=== PATIENT | male | born 1965 | race Caucasian/White ===

== ENCOUNTER 2016-11-20 21:08 | Emergency (ER) | payer SELFPAY ==
[~2016-11-20] VITALS: Ht 185.4 cm; Wt 84.1 kg
[2016-11-20 21:39] LABS: HEMATOCRIT 45.7 % (38.0-50.0); MCH 30.4 PG (29.0-34.0); MCHC 33.9 G/DL (30.0-36.0); MCV 89.6 FL (86-99); MEAN PLAT.VOLUME 9.4 uM^3 (9.0-12.4); PLATELET COUNT 301 K/uL (156-360); RBC DIS.WIDTH-CV 13.2 % (11.8-14.6); RBC DIS.WIDTH-SD 43.4 % (39-53); WHITE BLOOD COUNT 10.9 K/uL (4.1-10.2)
[2016-11-20 21:57] LABS: CHLORIDE 106 mEq/L (99-109); POTASSIUM 3.7 mEq/L (3.7-5.4); SODIUM 140 mEq/L (136-147)
[2016-11-20 21:58] LABS: GLUCOSE 151 mg/dL (70-99)
[2016-11-20 22:00] LABS: ANION GAP 12 MEQ/L (2-14)
[2016-11-20 22:02] LABS: GFR ESTIMATE (CALCULATED) > 59 mL/min/
[2016-11-20 22:03] LABS: UREA NITROGEN (BUN) 13 mg/dL (9-23)
[2016-11-20 22:06] LABS: TROP-I INTERPRETATION NEGATIVE; TROPONIN-I 0.01 ng/mL (0.0-0.30)
[2016-11-20 22:32] LABS: SERUM ETHYL ALCOHOL < 10 mg/dL
[2016-11-21 00:26] VITALS: BP 122/78
== END 2016-11-21 00:27 | disposition left against medical advice (07) ==
LOC: EME → EDBD 21:08 → EME 21:08
DX: R55 Syncope and collapse (principal); S00.81XA Abrasion of other part of head, initial encounter; W17.89XA Other fall from one level to another, initial encounter; Y92.89 Other specified places as the place of occurrence of the external cause; F17.200 Nicotine dependence, unspecified, uncomplicated
CPT/HCPCS: 70450; 71020; 80048; 84484; 85027; 93005; 99281; 99284; G0480; J7030